=== PATIENT | male | born 1965 | race Caucasian/White ===

== ENCOUNTER 2025-04-17 14:58 | Outpatient (AMB) | payer OTHER, SELFPAY | END 2025-04-17 15:02 | disposition home or self-care (01) | LOC: HO.HMGAL 14:58 | PROVIDERS: Visit Provider Registered Nurse Emergency | DX: J30.89 Other allergic rhinitis (principal) | CPT/HCPCS: 95117; 95165 ==

== ENCOUNTER 2025-05-15 15:01 | Outpatient (AMB) | payer OTHER, SELFPAY | END 2025-05-15 15:13 | disposition home or self-care (01) | LOC: HO.HMGAL 15:01 | PROVIDERS: Visit Provider Registered Nurse Emergency | DX: J30.89 Other allergic rhinitis (principal) | CPT/HCPCS: 95117; 95165 ==

== ENCOUNTER 2025-06-17 15:10 | Outpatient (AMB) | payer OTHER, SELFPAY | END 2025-06-17 15:11 | disposition home or self-care (01) | LOC: HO.HMGAL 15:10 | PROVIDERS: PCP Student in an Organized Health Care Education/Training Program; Visit Provider Registered Nurse Emergency | DX: J30.89 Other allergic rhinitis (principal) | CPT/HCPCS: 95117; 95165 ==

== ENCOUNTER 2025-07-15 15:03 | Outpatient (AMB) | payer OTHER, SELFPAY ==
--- OUTSIDE RECORDS SUMMARY | 2025-07-15 19:49 | XMS_ITS | Clinical Summary ---
Author Organization [facility] Address [address] [place] [address] Care Team Providers Care Unarmed Security Officer Name Role Phone Marilu Tam MD Primary Care Prov ider Allergies No known active allergies Medications Medication Sig Dispensed Refills Start Date End Date Status montelukast (SINGULAIR) 10 MG tablet Take 10 mg by mouth at bedtime. 0 Active RaNITidine HCl (ZANTAC 75 OR) Take by mouth as needed. 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 Multiple environmental allergies Overview: Monthly injections Resolved Problems Problem Noted Date Resolved Date Benign prostatic hyperplasia 01/22/201709/2018 Childhood asthma 03/15/2017 Immunizations Name Administration Dates Next Due Tdap 03/15/2017 Family History Medical History Relation Name Comments Asthma Brother 2 brothers and sister Asthma Father Glaucoma Mother CA Breast Sister CAD Negative Hx Diabetes Negative Hx Hypertension Negative Hx Relation Name Status Comments Brother Father Mother Sister Social History Tobacco Use Types Packs/Day Years Used Date Smoking Tobacco: Former Cigarettes 1 0 08/22/1977 - 08/22/1984 Smokeless Tobacco: Never Alcohol Use Standard Drinks/Week Comments Yes 0 (1 standard drink = 0.6 oz pur e alcohol) 2-3 drinks, 3-4d/wk Sex Assigned at Date Recorded Not on file Last Filed Vital Signs Vital Sign Reading Time Taken Comments Blood Pressure 130/80 03/23/2019 9:13 AM EDT Pulse 120 03/23/2019 9:13 AM EDT Temperature 37.1 C (98.7 F) 03/01/2017 8:47 AM EDT Respiratory Rate 16 03/23/2019 9:13 AM EDT Oxygen Saturation 96% 03/01/2017 10:25 AM EDT Inhaled Oxygen Concentration - - Weight 95.3 kg (210 lb) 03/23/2019 9:13 AM EDT Height 190.5 cm (6' 3 ) 03/23/2019 9:13 AM EDT Body Mass Index 26.25 03/23/2019 9:13 AM EDT Plan of Treatment Health Maintenance Due Date Last Done Comments Covid-19 Vaccine (#1) 1965 SHINGLES VACCINE (1 of 2) 01/17/2014 BASELINE HEALTH EXAM 40-64 03/23/2021 03/23/2019, CHOLESTEROL SCREENING 11/16/2021 11/16/2016 BMI CHECK/ADVISE 08/22/2024 03/23/2019, 11/16/2016 INFLUENZA (#1) 2025 05/24/2016 (Exte rnal Completion) COLON CANCER SCREENING 03/01/2027 03/01/2017 DTAP/TDAP/TD (2 - Td or Tdap) 03/15/2027 03/15/2017 PNEUMOCOCCAL VACCINE FOR HIG H RISK PATIENTS (#1) 01/17/2029 HEPATITIS C SCREENING Completed 03/23/2019 Additional Health Concerns Infection Onset Date Last Indicated COVID-19 Comment:Pateint reporting positive result from today 08/20/2022 1 Care Teams Unarmed Security Officer Relationship Specialty Start Date End Date Marilu Tam MD [address] [place] [address] [id number] PCP - General Internal Medicine 03/15/22
--- OUTSIDE RECORDS SUMMARY | 2025-07-15 19:49 | XMS_ITS | Encounter Summary ---
Author Organization [facility] Address [address] [place] [address] Care Team Providers Care Primary Care Coordinator Name Role Phone Jim Raya MD Primary Care Provider Unavail able Marilu Tam MD Primary Care Prov ider Encounter Details Date Type Department Care Team Description 09/19/2019 Cash Applications Clerk Report Medical Records [address] [place] [address] Ranjith Jones Social History Tobacco Use Types Packs/Day Years Used Date Smoking Tobacco: Former Cigarettes 1 0 08/22/1977 - 08/22/1984 Smokeless Tobacco: Never Alcohol Use Standard Drinks/Week Comments Yes 0 (1 standard drink = 0.6 oz pur e alcohol) 2-3 drinks, 3-4d/wk Sex Assigned at Date Recorded Not on file documented as of this encounter Plan of Treatment Not on file documented as of this encounter Visit Diagnoses Not on filedocumented in this encounter Additional Health Concerns Infection Onset Date Last Indicated Resolved Time COVID-19 Comment:Pateint reporting positive result from today 08/20/2022 08/20/2022 documented as of this encounter Care Teams Primary Care Coordinator Relationship Specialty Start Date End Date Jim Raya MD PCP - General Internal Medicine 07/17/12 03/14/22 Marilu Tam MD [address] [place] [address] [phone] PCP - General Internal Medicine 03/15/22 documented as of this encounter
--- OUTSIDE RECORDS SUMMARY | 2025-07-15 19:49 | XMS_ITS | Encounter Summary ---
Author Organization [facility] Address [address] [place] [address] Care Team Providers Care Medical Receptionist Name Role Phone Jim Raya MD Primary Care Provider Unavail able Marilu Tam MD Primary Care Prov ider Encounter Details Date Type Department Care Team Description 11/24/2016 Pt. Referral Request [facility] Charlie [address] [place] [id number] Md Charlie Social History Tobacco Use Types Packs/Day Years Used Date Smoking Tobacco: Former Cigarettes 3 1 Smokeless Tobacco: Never Alcohol Use Standard Drinks/Week Comments Yes 0 (1 standard drink = 0.6 oz pur e alcohol) social Sex Assigned at Date Recorded Not on file documented as of this encounter Plan of Treatment Not on file documented as of this encounter Visit Diagnoses Not on filedocumented in this encounter Additional Health Concerns Infection Onset Date Last Indicated Resolved Time COVID-19 Comment:Pateint reporting positive result from today 08/20/2022 08/20/2022 documented as of this encounter Care Teams Medical Receptionist Relationship Specialty Start Date End Date Jim Raya MD PCP - General Internal Medicine 07/17/12 03/14/22 Marilu Tam MD [address] [place] [id number] PCP - General Internal Medicine 03/15/22 documented as of this encounter
--- OUTSIDE RECORDS SUMMARY | 2025-07-15 19:49 | XMS_ITS | Encounter Summary ---
Author Organization [facility] Address [address] [place] [address] Care Team Providers Care Skip Locator Name Role Phone Jim Raya MD Primary Care Provider Unavail able Marilu Tam MD Primary Care Prov ider Encounter Details Date Type Department Care Team Description 07/19/2012 Release of Information Medical Records [address] [place] [address] Abstract, Provider Social History Tobacco Use Types Packs/Day Years Used Date Smoking Tobacco: Never Assessed Sex Assigned at Date Recorded Not on file documented as of this encounter Plan of Treatment Not on file documented as of this encounter Visit Diagnoses Not on filedocumented in this encounter Additional Health Concerns Infection Onset Date Last Indicated Resolved Time COVID-19 Comment:Pateint reporting positive result from today 08/20/2022 08/20/2022 documented as of this encounter Care Teams Skip Locator Relationship Specialty Start Date End Date Jim Raya MD PCP - General Internal Medicine 07/17/12 03/14/22 Marilu Tam MD [address] [place] [id number] PCP - General Internal Medicine 03/15/22 documented as of this encounter
--- OUTSIDE RECORDS SUMMARY | 2025-07-15 19:49 | XMS_ITS | Encounter Summary ---
Author Organization [facility] Address [address] [place] [address] Care Team Providers Care Concrete Panel Installer Name Role Phone Jim Raya MD Primary Care Provider Unavail able Marilu Tam MD Primary Care Prov ider Encounter Details Date Type Department Care Team Description 06/08/2016 Multiple Games Dealer Report Medical Records [address] [place] [address] Joseph Castorena Social History Tobacco Use Types Packs/Day Years [...] documented as of this encounter Care Teams Concrete Panel Installer Relationship Specialty Start Date End Date Jim Raya MD PCP - General Internal Medicine 07/17/12 03/14/22 Marilu Tam MD [address] [place] [address] PCP - General Internal Medicine 03/15/22 documented as of this encounter
== END 2025-07-15 15:04 | disposition home or self-care (01) ==
LOC: HO.HMGAL 15:03
PROVIDERS: PCP Student in an Organized Health Care Education/Training Program; Visit Provider Registered Nurse Emergency
DX: J30.89 Other allergic rhinitis (principal)
CPT/HCPCS: 95117; 95165

== ENCOUNTER 2025-08-12 15:22 | Outpatient (AMB) | payer OTHER, SELFPAY | END 2025-08-12 15:23 | disposition home or self-care (01) | LOC: HO.HMGAL 15:22 | PROVIDERS: PCP Student in an Organized Health Care Education/Training Program; Visit Provider Registered Nurse Emergency | DX: J30.89 Other allergic rhinitis (principal) | CPT/HCPCS: 95117; 95165 ==